=== PATIENT | male | born 1945 | race Caucasian/White ===

== ENCOUNTER 2020-08-30 17:12 | Emergency (ER) | payer MEDICARE, BC ==
[2020-08-30 17:24] LABS: Glucose,Whole Blood 155 mg/dL (75-99)
[2020-08-30] MEDS ORDERED: SODIUM CHLORIDE 0.9% 1,000 ML IV STA (17:45)
--- NOTE | 2020-08-30 17:49 | ED ---
General Adult HPI - General Stated complaint: fall - History of Present Illness Initial comments: Dictation was produced using [employer] dictation software. please excuse any gra mmatical, word or spelling errors. This patient was cared for during a federal and state declared state of emergency secondary to Covid 19 Chief Complaint 75:-year-old male presents after fall from tree stand History of Present Illness: 35-year-old male is brought in by EMS. Chonevelyn jhaveri 30 minutes prior to arrival patient fell from tree stand. He was with a chainsaw approximately 15 feet in the air when he all of a sudden fell. It's unclear whether the fall was witnessed. Patient is found to be unresponsive. EMS was called patient is brought to the emergency department. He missed reports that patient did not have any purposeful movements he was agitated. EMS reports that family states patient had cardiac history. The ROS documented in this emergency department record has been reviewed and confirmed by me. Those systems with pertinent positive or negative responses have been documented in the HPI. All other systems are other negative and/or noncontributory. PHYSICAL EXAM: General Impression: GCS 8, nonverbal, eyes open to voice, patient localizes painful stimuli. Patient does not follow commands HEENT: Normocephalic atraumatic, extra-ocular movements intact, pupils equal and reactive to light bilaterally, mucous membranes moist. Cardiovascular: Heart regular rate and rhythm Chest: Diminished lung sounds on the left lung crawford Abdomen: abdomen soft, non-tender, non-distended, no organomegaly Musculoskeletal: Pulses present and equal in all extremities, no peripheral edema, no extremity deformities Neurological: Does not follow commands, facial symmetry, moves all extremity is grossly Skin: Intact with no visualized rashes ED course: 75 y Old male presents to us with altered mental status and concerns of fall from 15 feet. Vital signs upon arrival are within acceptable limits. Patient is GCS 8. He is very agitated and uncooperative. Patient activated level I trauma. He was seen and evaluated in trauma bay #1. ATLS protocol. Given that patient was very agitated and uncooperative for his protection patient was intubated and sedated. Patient is normotensive. He does not have any obvious signs of trauma. Chest x-ray shows pulmonary contusion in the left upper lung crawford with subcutaneous air in the left hemithorax.Laboratory evaluation today leukocytosis 16.4. Rest of CBC is unremarkable. Coag panel is negative. Metabolic panel is relatively unremarkable. Urinalysis is negative. Toxicology screen is negative. Alcohol is negative. Computed tomography scan of the brain and C-spine shows small area of acute intraventricular hemorrhage on the left side. There is left upper rib fractures with left-sided pneumotho rax of pulmonary consolidation consistent with pulmonary contusion. There is some cutaneous area extending from the chest wall to the left side of the neck. Computed tomography scan of the chest abdomen pelvis was obtained. There are left posterior upper multiple rib fractures, left clavicle fracture soft tissue and soft tissue bruising posterior left side. Patient became agitated. He is given some Dilaudid. His blood pressure started to decrease to the high 80s systolic after initially presenting with hypertensive measurements. Patient was given Narcan with slight improvement of blood pressure. He is getting normal saline bolus. Cardiac windows were obtained with of care ultrasound showing no Not physiology. There was however identifiable pericardial fluid likely hemopericardium. Case is discussed with Dr. Smith who requested that we contact cardiothoracic. Case was discussed with Dr. Partida who recommended immediate transfer to higher level of care. Case is discussed with , trauma doctor at [facility] who is agreeable for transfer to [facility] emergency room. EKG interpretation: Ventricular rate 90, normal sinus rhythm,. Interval 176, QRS 82, QTc 469. No OH prolongation, no QTC prolongation, no ST or T-wave changes noted. Overall, this EKG is unremarkable - Related Data Home Medications Medication Instructions Recorded Confirmed Atorvastatin [Lipitor] 80 mg PO DAILY 07/19/14 12/31/14 Cholecalciferol [Vitamin D3] 1,000 unit PO DAILY 07/19/14 12/30/14 Multivitamin/Iron/Folic Acid 1 each PO DAILY 07/19/14 12/30/14 [Centrum Complete Multivit Tab] Triamcinolone Acetonide 2 spray NASAL DAILY 07/19/14 12/30/14 metFORMIN HCL [Glucophage] 500 mg PO DAILY 07/19/14 12/30/14 Aspirin 325 mg PO DAILY 12/30/14 12/30/14 Isosorbide Mononitrate ER [Imdur] 30 mg PO DAILY 12/30/14 12/30/14 Metoprolol Tartrate [Lopressor] 25 mg PO DAILY 12/30/14 12/30/14 Multivitamin/Iron/Folic Acid 1 each PO DAILY 12/30/14 12/30/14 [Centrum Complete Multivit Tab] Saw [place] 500 mg PO DAILY 12/30/14 12/30/14 lisinopriL [Zestril] 5 mg PO DAILY 12/30/14 12/30/14 Clopidogrel [Plavix] 75 mg 12/31/14 12/31/14 Nitroglycerin Sl Tabs [Nitrostat] 0.4 mg SUBLINGUAL PRN 12/31/14 12/31/14 Previous Rx's Medication Instructions Recorded Docusate [Colace] 100 mg PO DAILY #30 capsule 07/19/14 Hydrocodone/Acetaminophen 1 each PO Q4HR PRN #20 tablet 07/19/14 [Hydrocodone/Acetaminophen 5-325] Allergies Allergy/AdvReac Type Severity Reaction Status Date / Time No Known Allergies Allergy Verified 08/30/20 18:47 Review of Systems ROS Statement: Those systems with pertinent positive or pertinent negative responses have been documented in the HPI. ROS Other: All systems not noted in ROS Statement are negative. Past Medical History Past Medical History: Diabetes Mellitus, Hyperlipidemia, Hypertension, Myocardial Infarction (ND) Additional Past Medical History / Comment(s): 12/30/14 Pt admitted to floor s/p [facility] with stent to mid LAD today. Pt was seen recently at cardiology's office where he explained that he had chest pain 10 days prior and was experiencing SOB with exertion. Pt had recent subacute anterior wall infarction. Other HX: L eye torn retina, diverticulitis, shingelles in 2013. Last Myocardial Infarction Date:: 11/2014 History of Any Multi-Drug Resistant Organisms: None Reported Past Surgical History: Heart Catheterization With Stent Additional Past Surgical History / Comment(s): colonoscopy, surgery for undescended tesicles as child Additional Past Anesthesia/Blood Transfusion Reaction / Comment(s): Pt has never recieved blood. Date of Last Stent Placement:: 12/30/14 Past Psychological History: No Psychological Hx Reported Additional Psychological History / Comment(s): Pt is independent. He drives a car. Past Alcohol Use History: Rare Past Drug Use History: None Reported - Past Family History Father Family Medical History: Myocardial Infarction (ND) Additional Family Medical History / Comment(s): Father of ND at age 58 yrs. Mother Family Medical History: Dementia Course Vital Signs 08/30/20 18:51 Respiratory 12 Rate Procedures - Chest Tube Insertion Consent Obtained: emergent situation Side of Procedure: left Indication: Hemothorax Placed on monitor/pulse oximetry: Yes Site Prep: Povidone-Iodine Insertion Site: 5th Intercostal Space Scalpel: #15 Open into Pleural Space Using: Hemostats Tube Size (Malaysian): 28 Returns: Air Sutured in Place: Yes (0 silk) Type of Suture: Silk Attached to Suction: Yes Type of Suction: Pleuravac Repeat X-ray Results: Lung Inflated Patient Tolerated Procedure: well - Intubation Sedative: Etomidate Paralytic: Rocuronium Laryngoscope: Azam Size: 4 ET Tube Uncuffed: Yes Tube Secured Depth (cm): 24 Tube Secured Location: lips Tube Placement Confirmation: visualized tube passing through cords, equal breath sounds bilaterally, no breath sounds over epigastrium, confirmation by capnometry Patient Tolerated Procedure: well Medical Decision Making - Lab Data Result diagrams: 08/30/20 17:22 08/30/20 17:22 Lab Results 08/30/20 08/30/20 08/30/20 Range/Units 17:22 17:22 17:22 WBC 16.4 H (3.8-10.6) k/uL RBC 4.85 (4.30-5.90) m/uL Hgb 15.0 (13.0-17.5) gm/dL Hct 45.3 (39.0-53.0) % MCV 93.5 (80.0-100.0) fL MCH 30.9 (25.0-35.0) pg MCHC 33.1 (31.0-37.0) g/dL RDW 12.7 (11.5-15.5) % Plt Count 282 (150-450) k/uL Neutrophils % 67 % Lymphocytes % 25 % Monocytes % 4 % Eosinophils % 1 % Basophils % 1 % Neutrophils # 11.0 H (1.3-7.7) k/uL Lymphocytes # 4.2 (1.0-4.8) k/uL Monocytes # 0.6 (0-1.0) k/uL Eosinophils # 0.2 (0-0.7) k/uL Basophils # 0.1 (0-0.2) k/uL PT 11.0 (9.0-12.0) sec INR 1.1 (<1.2) APTT 19.0 L (22.0-30.0) sec Sodium 138 (137-145) mmol/L Potassium 4.3 (3.5-5.1) mmol/L Chloride 102 (98-107) mmol/L Carbon Dioxide 27 (22-30) mmol/L Anion Gap 9 mmol/L BUN 26 H (9-20) mg/dL Creatinine 1.16 (0.66-1.25) mg/dL Est GFR (CKD-EPI)AfAm 72 (>60 ml/min/1.73 sqM) Est GFR (CKD-EPI)NonAf 63 (>60 ml/min/1.73 sqM) Glucose 163 H (74-99) mg/dL POC Glucose (mg/dL) (75-99) mg/dL POC Glu Urogynecology Physician ID Calcium 9.1 (8.4-10.2) mg/dL Total Bilirubin 0.7 (0.2-1.3) mg/dL AST 92 H (17-59) U/L ALT 65 H (4-49) U/L Alkaline Phosphatase 102 (38-126) U/L Troponin I (0.000-0.034) ng/mL Total Protein 7.4 (6.3-8.2) g/dL Albumin 4.4 (3.5-5.0) g/dL Urine Color Urine Appearance (Clear) Urine pH (5.0-8.0) Ur Specific [place] (1.001-1.035) Urine Protein (Negative) Urine Glucose (UA) (Negative) Urine Ketones (Negative) Urine Blood (Negative) Urine Nitrite (Negative) Urine Bilirubin (Negative) Urine Urobilinogen (<2.0) mg/dL Ur Leukocyte Esterase (Negative) Urine RBC (0-5) /hpf Urine WBC (0-5) /hpf Hyaline Casts (0-2) /lpf Urine Mucus (None) /hpf Urine Opiates Screen (NotDetected) Ur Oxycodone Screen (NotDetected) Urine Methadone Screen (NotDetected) Ur Propoxyphene Screen (NotDetected) Ur Barbiturates Screen (NotDetected) U Tricyclic Antidepress (NotDetected) Ur Phencyclidine Scrn (NotDetected) Ur Amphetamines Screen (NotDetected) U Methamphetamines Scrn (NotDetected) U Benzodiazepines Scrn (NotDetected) Urine Cocaine Screen (NotDetected) U Marijuana (THC) Screen (NotDetected) Serum Alcohol <10 mg/dL Blood Type Blood Type Confirm Blood Type Recheck Bld Type Recheck Status Antibody Screen Spec Expiration Date 08/30/20 08/30/20 08/30/20 Range/Units 17:22 17:22 17:23 WBC (3.8-10.6) k/uL RBC (4.30-5.90) m/uL Hgb (13.0-17.5) gm/dL Hct (39.0-53.0) % MCV (80.0-100.0) fL MCH (25.0-35.0) pg MCHC (31.0-37.0) g/dL RDW (11.5-15.5) % Plt Count (150-450) k/uL Neutrophils % % Lymphocytes % % Monocytes % % Eosinophils % % Basophils % % Neutrophils # (1.3-7.7) k/uL Lymphocytes # (1.0-4.8) k/uL Monocytes # (0-1.0) k/uL Eosinophils # (0-0.7) k/uL Basophils # (0-0.2) k/uL PT (9.0-12.0) sec INR (<1.2) APTT (22.0-30.0) sec Sodium (137-145) mmol/L Potassium (3.5-5.1) mmol/L Chloride (98-107) mmol/L Carbon Dioxide (22-30) mmol/L Anion Gap mmol/L BUN (9-20) mg/dL Creatinine (0.66-1.25) mg/dL Est GFR (CKD-EPI)AfAm (>60 ml/min/1.73 sqM) Est GFR (CKD-EPI)NonAf (>60 ml/min/1.73 sqM) Glucose (74-99) mg/dL POC Glucose (mg/dL) 155 H (75-99) mg/dL POC Glu Urogynecology Physician ID Nas [place]le Calcium (8.4-10.2) mg/dL Total Bilirubin (0.2-1.3) mg/dL AST (17-59) U/L ALT (4-49) U/L Alkaline Phosphatase (38-126) U/L Troponin I <0.012 (0.000-0.034) ng/mL Total Protein (6.3-8.2) g/dL Albumin (3.5-5.0) g/dL Urine Color Urine Appearance (Clear) Urine pH (5.0-8.0) Ur Specific [place] (1.001-1.035) Urine Protein (Negative) Urine Glucose (UA) (Negative) Urine Ketones (Negative) Urine Blood (Negative) Urine Nitrite (Negative) Urine Bilirubin (Negative) Urine Urobilinogen (<2.0) mg/dL Ur Leukocyte Esterase (Negative) Urine RBC (0-5) /hpf Urine WBC (0-5) /hpf Hyaline Casts (0-2) /lpf Urine Mucus (None) /hpf Urine Opiates Screen (NotDetected) Ur Oxycodone Screen (NotDetected) Urine Methadone Screen (NotDetected) Ur Propoxyphene Screen (NotDetected) Ur Barbiturates Screen (NotDetected) U Tricyclic Antidepress (NotDetected) Ur Phencyclidine Scrn (NotDetected) Ur Amphetamines Screen (NotDetected) U Methamphetamines Scrn (NotDetected) U Benzodiazepines Scrn (NotDetected) Urine Cocaine Screen (NotDetected) U Marijuana (THC) Screen (NotDetected) Serum Alcohol mg/dL Blood Type Blood Type Confirm B Positive Blood Type Recheck Bld Type Recheck Status Antibody Screen Spec Expiration Date 08/30/20 08/30/20 Range/Units 17:26 17:31 WBC (3.8-10.6) k/uL RBC (4.30-5.90) m/uL Hgb (13.0-17.5) gm/dL Hct (39.0-53.0) % MCV (80.0-100.0) fL MCH (25.0-35.0) pg MCHC (31.0-37.0) g/dL RDW (11.5-15.5) % Plt Count (150-450) k/uL Neutrophils % % Lymphocytes % % Monocytes % % Eosinophils % % Basophils % % Neutrophils # (1.3-7.7) k/uL Lymphocytes # (1.0-4.8) k/uL Monocytes # (0-1.0) k/uL Eosinophils # (0-0.7) k/uL Basophils # (0-0.2) k/uL PT (9.0-12.0) sec INR (<1.2) APTT (22.0-30.0) sec Sodium (137-145) mmol/L Potassium (3.5-5.1) mmol/L Chloride (98-107) mmol/L Carbon Dioxide (22-30) mmol/L Anion Gap mmol/L BUN (9-20) mg/dL Creatinine (0.66-1.25) mg/dL Est GFR (CKD-EPI)AfAm (>60 ml/min/1.73 sqM) Est GFR (CKD-EPI)NonAf (>60 ml/min/1.73 sqM) Glucose (74-99) mg/dL POC Glucose (mg/dL) (75-99) mg/dL POC Glu Urogynecology Physician ID Calcium (8.4-10.2) mg/dL Total Bilirubin (0.2-1.3) mg/dL AST (17-59) U/L ALT (4-49) U/L Alkaline Phosphatase (38-126) U/L Troponin I (0.000-0.034) ng/mL Total Protein (6.3-8.2) g/dL Albumin (3.5-5.0) g/dL Urine Color Yellow Urine Appearance Clear (Clear) Urine pH 6.0 (5.0-8.0) Ur Specific [place] 1.014 (1.001-1.035) Urine Protein Negative (Negative) Urine Glucose (UA) Negative (Negative) Urine Ketones Negative (Negative) Urine Blood Small H (Negative) Urine Nitrite Negative (Negative) Urine Bilirubin Negative (Negative) Urine Urobilinogen <2.0 (<2.0) mg/dL Ur Leukocyte Esterase Negative (Negative) Urine RBC 3 (0-5) /hpf Urine WBC 2 (0-5) /hpf Hyaline Casts 1 (0-2) /lpf Urine Mucus Rare H (None) /hpf Urine Opiates Screen Not Detected (NotDetected) Ur Oxycodone Screen Not Detected (NotDetected) Urine Methadone Screen Not Detected (NotDetected) Ur Propoxyphene Screen Not Detected (NotDetected) Ur Barbiturates Screen Not Detected (NotDetected) U Tricyclic Antidepress Not Detected (NotDetected) Ur Phencyclidine Scrn Not Detected (NotDetected) Ur Amphetamines Screen Not Detected (NotDetected) U Methamphetamines Scrn Not Detected (NotDetected) U Benzodiazepines Scrn Not Detected (NotDetected) Urine Cocaine Screen Not Detected (NotDetected) U Marijuana (THC) Screen Not Detected (NotDetected) Serum Alcohol mg/dL Blood Type B Positive Blood Type Confirm Blood Type Recheck No Previous Record Bld Type Recheck Status CABO Indicated Antibody Screen NEGATIVE Spec Expiration Date 09/02/2020 - 2321 Critical Care Time Critical Care Time: Yes (72) Disposition Clinical Impression: Critical polytrauma Disposition: OTHER INSTITUTION NOT DEFINED Condition: Critical Referrals: Arlene Gong DO [Primary Care Provider] - 1-2 days Time of Disposition: 19:06 - Out of Hospital Transfer - Req. Specs Out of Hospital Transfer - Requested Specifics: Other Emergency Center ([facility])
[2020-08-30 17:51] LABS: Basophils # (A) 0.1 k/uL (0-0.2); Basophils % (A) 1 %; Eosinophils # (A) 0.2 k/uL (0-0.7); Eosinophils % (A) 1 %; HCT 45.3 % (39.0-53.0); Lymphocytes # (A) 4.2 k/uL (1.0-4.8); Lymphocytes % (A) 25 %; MCH 30.9 pg (25.0-35.0); MCHC 33.1 g/dL (31.0-37.0); MCV 93.5 fL (80.0-100.0); Mean Platelet Volume 7.5; Monocytes # (A) 0.6 k/uL (0-1.0); Monocytes % (A) 4 %; Neutrophils % (A) 67 %; Platelet Count 282 k/uL (150-450); RBC 4.85 m/uL (4.30-5.90); RDW 12.7 % (11.5-15.5); WBC 16.4 k/uL (3.8-10.6)
[2020-08-30 17:56] LABS: Appearance,Urine Clear (Clear); Bilirubin,Urine Negative (Negative); Blood,Urine Small (Negative); Color,Urine Yellow; Glucose,Urine (UA) Negative (Negative); Hyaline Casts,Urine 1 /lpf (0-2); Ketones,Urine Negative (Negative); Leukocyte Esterase,Urine Negative (Negative); Mucus,Urine Rare /hpf; Nitrite,Urine Negative (Negative); Protein,Urine Negative (Negative); RBC,Urine 3 /hpf (0-5); Specific Gravity,Urine 1.014 (1.001-1.035); Urobilinogen,Urine <2.0 mg/dL (<2.0); WBC,Urine 2 /hpf (0-5)
[2020-08-30 17:57] LABS: ALT 65 U/L (4-49); AST 92 U/L (17-59); African American GFR (CKD) 72 (>60 ml/min/1.73 sqM); Albumin 4.4 g/dL (3.5-5.0); Alcohol <10 mg/dL; Alkaline Phosphatase 102 U/L (38-126); Anion Gap 9 mmol/L; Blood Urea Nitrogen 26 mg/dL (9-20); Calcium 9.1 mg/dL (8.4-10.2); Carbon Dioxide 27 mmol/L (22-30); Chloride 102 mmol/L (98-107); Glucose 163 mg/dL (74-99); Non-African American GFR(CKD) 63 (>60 ml/min/1.73 sqM); Potassium 4.3 mmol/L (3.5-5.1); Sodium 138 mmol/L (137-145); Total Bilirubin 0.7 mg/dL (0.2-1.3); Total Protein 7.4 g/dL (6.3-8.2)
--- NOTE | 2020-08-30 17:59 | XR ---
EXAMINATION TYPE: XR pelvis AP view DATE OF EXAM: 08/30/2020 COMPARISON: NONE HISTORY: Fall. Pain. TECHNIQUE: Single view FINDINGS: The pelvic ring is intact. Sacroiliac joints are intact. There is vascular calcification. IMPRESSION: No acute abnormality of the pelvis.
--- NOTE | 2020-08-30 18:06 | XR ---
EXAMINATION TYPE: XR chest 1V portable DATE OF EXAM: 08/30/2020 COMPARISON: 12/29/2014 HISTORY: Fall. Pain. TECHNIQUE: Single view FINDINGS: Endotracheal tube is 4 cm from the richard. There is soft tissue air on the left chest wall. There is some 8 patchy infiltrate in the left lung. Right lung is clear. I see no definite pneumotho rax. IMPRESSION: Soft tissue air. Left side pulmonary infiltrates could relate to pulmonary contusion. Abn ormalities appear new compared to old exam. No displaced rib fracture seen. Normal heart.
[2020-08-30 18:08] LABS: INR 1.1 (<1.2)
[2020-08-30 18:12] LABS: Amphetamine Screen,Urine Not Detected (NotDetected); Barbiturate Screen,Urine Not Detected (NotDetected); Benzodiazepines Screen,Urine Not Detected (NotDetected); Cocaine Screen,Urine Not Detected (NotDetected); Methadone Screen, Urine Not Detected (NotDetected); Opiate Screen,Urine Not Detected (NotDetected); Oxycodone Screen, Urine Not Detected (NotDetected); Phencyclidine Screen,Urine Not Detected (NotDetected); Tricyclic Antidepressant,Urine Not Detected (NotDetected); Urn Cannabinoid Scrn Not Detected (NotDetected)
[2020-08-30] MEDS ORDERED: HYDROmorphone 1 MG/ML 1 ML SYRINGE IVP STA (18:26)
[2020-08-30] MEDS ORDERED: ETOMIDATE 2 MG/ML 10 ML VIAL IVP STA (18:27)
[2020-08-30] MEDS ORDERED: ROCURONIUM 10 MG/ML (10 ML VIAL) IV STA (18:28)
--- NOTE | 2020-08-30 18:29 | CT ---
EXAMINATION TYPE: CT brain blayne wo con DATE OF EXAM: 08/30/2020 COMPARISON: None HISTORY: Fall from 15ft Headache CT DLP: 1695.7 mGycm Automated exposure control for dose reduction was used. Ventricles have normal size. There is no mass effect nor midline shift. There is a 4 x 1 cm area of h igher attenuation in the left lateral ventricle suggestive of acute intraventricular hemorrhage. Vent ricles are not enlarged. The skull base is intact. Calvarium is intact. There is no evidence of skull fracture. Cervical vertebra have normal alignment. Facet joints are intact. Posterior elements are intact. Cerv ical disc spaces are fairly well-maintained. The occipital bone is intact. There is no evidence of ba silar skull fracture. There is normal aeration of the mastoid sinuses. There is endotracheal tube. Th ere is soft tissue air on the left side of the neck. I see no evidence of cervical spine fracture. Th ere is nondisplaced fracture of the left third rib at the costovertebral junction. There is similar f racture of the left fourth rib. There is left pleural effusion. There is left side pneumothorax with consolidation in the visualized left upper lobe. IMPRESSION: Small area of acute intraventricular hemorrhage on the left side. Left posterior upper rib fractures with left sided pneumothorax and pulmonary consolidation consisten t with contusion. Soft tissue air on the chest wall and extending into the left side of the neck. No evidence of cervical spine fracture.
--- NOTE | 2020-08-30 18:46 | CT ---
EXAMINATION TYPE: CT ChestAbdPelvis w con DATE OF EXAM: 08/30/2020 COMPARISON: CT abdomen pelvis 07/19/2014 HISTORY: fall from 15ft CT DLP: 947.3 mGycm Automated exposure control for dose reduction was used. CONTRAST: Performed with IV Contrast, patient injected with 100 mL of Isovue 300. There is a large left side pneumothorax of approximately 50%. There is left pleural effusion and left pulmonary consolidation and atelectasis. There is soft tissue air on the left chest wall. Trachea is midline. There is endotracheal tube noted. There is pulmonary emphysema and the right upper lobe. I see no pneumothorax on the right side. Thoracic aorta is intact. There is no sign of aneurysm or diss ection. Soft tissue air extends into the base of the neck on the left side. I see no definite pneumom ediastinum . There is a small pneumopericardium. There is high attenuation fluid around the heart rel ated to hemopericardium. This measures up to 1 cm in thickness. There is some atelectasis right lung base. Liver spleen stomach pancreas gallbladder appear normal. Bile ducts are not dilated. There is no adre nal mass. Kidneys show satisfactory contrast opacification. There is no hydronephrosis. Ureters are n ot dilated. Abdominal aorta is atheromatous. There is no retroperitoneal adenopathy. Bladder is almos t empty. There is Martinez catheter in the bladder. There are numerous sigmoid diverticula. There is no sign of diverticulitis. There is no mesenteric edema. There is no ascites or free air. There is no si gn of pneumoperitoneum. There is no sign of a bowel obstruction. There is increased subcutaneous density posterior to the left iliac bone consistent with some bruisin g. The hip joints appear intact. Bony pelvis is intact. I see no sign of pelvic fracture. There are n ondisplaced fractures of the posterior left upper ribs at the costovertebral junction. This involves the left third fourth fifth and sixth ribs. There is comminuted fracture of the partly visualized lef t clavicle. There is partial visualization of the left shoulder and the glenohumeral joint is anatomi c. Sternum is intact. Thoracic and lumbar vertebra appear intact. The bony pelvis is intact. I see no ev idence of thoracic or lumbar compression fracture. IMPRESSION: Left posterior upper multiple rib fractures. Left clavicle fracture. Soft tissue air. Soft tissue bru ising posterior to the left side of the pelvis. There is evidence of hemopneumothorax and left pulmonary contusion and atelectasis. Small hemopneumo pericardium.. Emphysema. This exam was discussed with ER physician at 6:45 PM.
[2020-08-30] MEDS ORDERED: fentaNYL (PF) 50 MCG/ML 2 ML AMP IVP STA (18:56)
[2020-08-30] MEDS ORDERED: NALOXONE 0.4 MG/ML 1 ML VIAL IVP STA (18:59)
[2020-08-30 19:01] VITALS: RESP 12
[2020-08-30] MEDS ORDERED: SODIUM CHLORIDE 0.9% 1,000 ML IV ONE (19:01)
[2020-08-30] MEDS ORDERED: MIDAZOLAM 1 MG/ML 5 ML VIAL IV STA (19:01)
--- NOTE | 2020-08-30 19:03 | XR ---
EXAMINATION TYPE: XR chest 1V DATE OF EXAM: 08/30/2020 COMPARISON: Today HISTORY: Post chest tube insertion TECHNIQUE: Single view FINDINGS: There is left-sided chest tube that appears to be in good position with the tip in the left midlung field. There is diffuse infiltrate in the left lung. There is soft tissue air on the left ch est wall. Endotracheal tube is 4 cm from the richard. Right lung is clear of consolidation. IMPRESSION: Chest tube in good position. No evidence of pneumothorax. Cardiac Silhouette slightly inc reased compared to recent exam and would be consistent with hemopericardium.
[2020-08-30 19:05] LABS: ABG Base Excess -4.4 mmol/L; ABG HCO3 23 mmol/L (21-25); ABG Oxygen Saturation 98.4 % (94-97); ABG PCO2 52 mmHg (35-45); ABG PH 7.25 (7.35-7.45); ABG PO2 118 mmHg (83-108); ABG TCO2 24 mmol/L (19-24); Allen Test Performed? Yes
--- NOTE | 2020-08-30 19:33 | XR ---
EXAMINATION TYPE: XR chest 1V DATE OF EXAM: 08/30/2020 COMPARISON: Today HISTORY: Chest tube TECHNIQUE: FINDINGS: There is left-sided chest tube with the tip over the left midlung field. I see no pneumotho rax. There is fracture of the mid shaft left clavicle. There is soft tissue air on the left chest wal l. There is airspace patchy consolidation left upper lobe. Right lung shows coarse interstitial densi ty. There is nasogastric tube in the stomach. Endotracheal tube is 4 cm from the richard. IMPRESSION: Left chest tube in good position. No pneumothorax. Endotracheal tube in good position. He art and lungs not significantly different than exam 30 minutes ago.
== END 2020-08-30 19:20 | disposition other institution (70) ==
LOC: EC 17:12
DX: S27.2XXA Traumatic hemopneumothorax, initial encounter (principal); S27.321A Contusion of lung, unilateral, initial encounter; S22.42XA Multiple fractures of ribs, left side, initial encounter for closed fracture; S42.002A Fracture of unspecified part of left clavicle, initial encounter for closed fracture; R45.1 Restlessness and agitation; D72.829 Elevated white blood cell count, unspecified; I10 Essential (primary) hypertension; E11.9 Type 2 diabetes mellitus without complications; E78.5 Hyperlipidemia, unspecified; I25.2 Old myocardial infarction; Z79.02 Long term (current) use of antithrombotics/antiplatelets; Z79.84 Long term (current) use of oral hypoglycemic drugs; Z79.82 Long term (current) use of aspirin; Z79.899 Other long term (current) drug therapy; Z95.5 Presence of coronary angioplasty implant and graft; W14.XXXA Fall from tree, initial encounter
CPT/HCPCS: 99291 ×2; 96374 ×2; 96375 ×4; 96361 ×2; 32554 ×2; 31500 ×2; 36415; 36600; 93005; 86900; 86901; 80053; 82805; 84484; 85025; 85610; 85730; 86850; 81001; 80306; 72170; 71045; 72125; 70450; 71260; 74177; C1729; G0480; J2310; J2250; J3010; J1170; Q9967; 80320; 94002